=== PATIENT | female | born 1935 | race Caucasian/White ===

== ENCOUNTER 2020-02-05 19:02 | Inpatient (IN) | payer MEDICARE, MEDICAID ==
[2020-02-05 19:44] LABS: #Basophils 0.1 thou/uL (0.0-0.2); #Eosinphils 0.3 thou/uL (0.0-0.7); #Lymphocytes 2.5 thou/uL (1.20-3.40); #Monocytes 0.7 thou/uL (0.11-0.59); #Neutrophils 5.3 thou/uL (1.40-6.50); %Basophils 1.1 % (0.0-1.0); %Eosinophils 3.4 % (0.0-10.0); %Lymphocytes 28.6 % (21.0-51.0); %Monocytes 7.5 % (0.0-10.0); %Neutrophils 59.4 % (42.0-75.0); Hemoglobin 10.4 g/dL (12.0-16.0); Mean Corpuscular HGB CONC 31.1 g/dL (32.0-36.0); Mean Corpuscular Hemoglobin 26.5 pg (27.0-31.0); Mean Corpuscular Volume 85.1 fL (78.0-98.0); Mean Platelet Volume 10.4 fL (7.4-10.4); Platelet Count 260 thou/uL (130-400); RBC Distribution Width 16.4 % (11.5-14.5); Red Blood Cell (RBC) Count 3.93 mill/uL (4.20-5.40); White Blood Cell (WBC) Count 8.9 thou/uL (4.8-10.8)
[2020-02-05 20:01] LABS: ALT (SGPT) 20 U/L (8-55); AST (SGOT) 18 U/L (5-34); Alkaline Phosphatase 112 U/L (40-110); Anion Gap 16 mmol/L (10-20); BUN (Urea Nitrogen) 40 mg/dL (9.8-20.1); Bilirubin, Total 0.3 mg/dL (0.2-1.2); CK (CPK) 52 U/L (29-168); Calc. Creatinine Clearance 0 mL/min (70-130); Carbon Dioxide 22 mmol/L (23-31); Chloride 96 mmol/L (98-107); Estimated GFR-MDRD 42; Globulin 2.7 g/dL (2.4-3.5); Glucose 132 mg/dL (83-110); Potassium 4.7 mmol/L (3.5-5.1); Protein, Total 6.7 g/dL (6.0-8.3); Sodium 129 mmol/L (136-145)
[2020-02-05 20:02] LABS: Bilirubin Negative (Negative); Blood, Urine Negative (Negative); Clarity Clear (Clear); Glucose, Urine (Dipstick) Negative (Negative); Ketone, Urine Negative (Negative); Leukocyte Trace (Negative); Nitrite Negative (Negative); Protein, Urine (Dipstick) Negative (Neg-Trace); Specific Gravity, Urine 1.015 (1.005-1.030); Urobilinogen 0.2 mg/dL (Less than 2)
[2020-02-05 20:07] LABS: Bacteria/HPF 3+ HPF (None Seen); RBC/HPF None Seen HPF (0-3); Squamous Epithelial None Seen HPF (0-3)
[2020-02-05] MEDS ORDERED: Sodium Chloride 0.9% 1,000 ML ONE (20:22)
[2020-02-05] MEDS ORDERED: Sodium Chloride 0.9% 100 ML ONE (20:22)
[2020-02-05] MEDS ORDERED: cefTRIAXone\\ROCEPHIN 1 GM VIAL ONE (20:22)
--- NOTE | 2020-02-05 20:45 | CT ---
CT OF BRAIN PERFORMED WITHOUT CONTRAST ENHANCEMENT: History: Altered mental status. Comparison: 01-31-17 FINDINGS: There is generalized ventricular and sulcal prominence. There are no signs of intracerebral hemorrhag e or extraaxial fluid collections. Mastoid air cells are clear. Minimal mucosal change within the max illary sinuses. IMPRESSION: No acute intracranial abnormalities. POS: OFF
--- NOTE | 2020-02-05 21:20 | RAD ---
KUB AND UPRIGHT PA CHEST: History: Altered mental status, nausea, vomiting, history of small bowel obstruction. FINDINGS: The bowel gas pattern appears nonobstructed. No free air demonstrated. No renal calculi seen. Atheros clerotic changes of the aorta are noted. PA CHEST: Heart size appears slightly enlarged. Atherosclerotic changes of the aorta. The lungs are clear of an y infiltrates. There are arthritic changes of the spine and hips. IMPRESSION: No acute findings. POS: OFF
[2020-02-05] MEDS ORDERED: Ondansetron PF 4 MG/2 ML Vial IVP PRN (23:25)
[2020-02-05] MEDS ORDERED: Ondansetron ODT 4 MG TAB SL PRN (23:25)
[2020-02-05] MEDS ORDERED: Sodium Chloride 0.9% 1,000 ML IV SCH (23:26)
[2020-02-05 23:47] VITALS: BMI 28.0
[2020-02-06 05:29] LABS: #Basophils 0.1 thou/uL (0.0-0.2); #Eosinphils 0.3 thou/uL (0.0-0.7); #Lymphocytes 2.4 thou/uL (1.20-3.40); #Monocytes 0.6 thou/uL (0.11-0.59); #Neutrophils 5.2 thou/uL (1.40-6.50); %Basophils 1.2 % (0.0-1.0); %Eosinophils 3.3 % (0.0-10.0); %Lymphocytes 27.8 % (21.0-51.0); %Monocytes 7.4 % (0.0-10.0); %Neutrophils 60.3 % (42.0-75.0); Hemoglobin 10.9 g/dL (12.0-16.0); Mean Corpuscular HGB CONC 30.7 g/dL (32.0-36.0); Mean Corpuscular Hemoglobin 26.3 pg (27.0-31.0); Mean Corpuscular Volume 85.6 fL (78.0-98.0); Mean Platelet Volume 9.3 fL (7.4-10.4); Platelet Count 249 thou/uL (130-400); RBC Distribution Width 16.1 % (11.5-14.5); Red Blood Cell (RBC) Count 4.15 mill/uL (4.20-5.40); White Blood Cell (WBC) Count 8.5 thou/uL (4.8-10.8)
[2020-02-06 05:41] LABS: Anion Gap 16 mmol/L (10-20); BUN (Urea Nitrogen) 33 mg/dL (9.8-20.1); Calc. Creatinine Clearance 54 mL/min (70-130); Calcium 9.3 mg/dL (7.8-10.44); Carbon Dioxide 20 mmol/L (23-31); Chloride 99 mmol/L (98-107); Estimated GFR-MDRD 56; Glucose 109 mg/dL (83-110); Potassium 4.5 mmol/L (3.5-5.1); Sodium 130 mmol/L (136-145)
[2020-02-06] MEDS ORDERED: Polyethylene Glycol 3350 17 GM Packet PO PRN (08:10)
[2020-02-06] MEDS ORDERED: Mag-Al Plus 1200 MG/1200 MG/120 MG/30 ML UDCUP PO PRN (08:10)
[2020-02-06] MEDS ORDERED: Loperamide HCl 2 MG CAP PO PRN (08:10)
[2020-02-06] MEDS ORDERED: Milk Of Magnesia 30 ML UDCUP PO PRN (08:10)
[2020-02-06] MEDS ORDERED: guaiFENesin 100 MG/5 ML UDCUP PO PRN (08:10)
[2020-02-06] MEDS ORDERED: Acetaminophen 325 MG TAB PO PRN (08:21)
[2020-02-06] MEDS ORDERED: Levothyroxine Sodium 50 MCG TAB PO SCH (08:30)
[2020-02-06] MEDS: Famotidine 20 MG TAB PO SCH ×2 (09:06→20:19)
[2020-02-06] MEDS: Lisinopril 10 MG TAB PO SCH (09:07)
[2020-02-06] MEDS: hydrALAZINE 25 MG TAB PO SCH ×3 (09:07→20:19)
[2020-02-06] MEDS: Aspirin Chewable 81 MG TAB PO SCH (09:07)
[2020-02-06] MEDS: Lactinex Tablet PO SCH ×3 (09:07→20:19)
[2020-02-06] MEDS: Mometasone/Formoterol 200/5 60 PUFF INH SCH ×2 (09:08→20:22)
[2020-02-06] MEDS: OXcarbazepine 150 MG TAB PO SCH (09:09)
[2020-02-06] MEDS: OLANZapine 5 MG TAB PO SCH ×2 (09:09→20:20)
[2020-02-06] MEDS: Carvedilol 25 MG TAB PO SCH ×2 (09:10→20:22)
[2020-02-06] MEDS: Vit A,C & E/Lutein/Minerals Tablet PO SCH (09:10)
[2020-02-06 09:35] LABS: Anion Gap 16 mmol/L (10-20); BUN (Urea Nitrogen) 30 mg/dL (9.8-20.1); Calc. Creatinine Clearance 52 mL/min (70-130); Calcium 9.5 mg/dL (7.8-10.44); Carbon Dioxide 21 mmol/L (23-31); Chloride 98 mmol/L (98-107); Estimated GFR-MDRD 54; Glucose 116 mg/dL (83-110); Potassium 4.8 mmol/L (3.5-5.1); Sodium 130 mmol/L (136-145)
[2020-02-06] MEDS ORDERED: Enoxaparin Sodium 40 MG/0.4 ML SYRINGE SC SCH (10:45)
[2020-02-06] MEDS: Cepastat Lozenges 1 LOZ PO SCH ×3 (13:01→22:43)
[2020-02-06 13:57] LABS: Anion Gap 14 mmol/L (10-20); BUN (Urea Nitrogen) 29 mg/dL (9.8-20.1); Calc. Creatinine Clearance 55 mL/min (70-130); Calcium 8.8 mg/dL (7.8-10.44); Carbon Dioxide 20 mmol/L (23-31); Chloride 98 mmol/L (98-107); Estimated GFR-MDRD 57; Glucose 127 mg/dL (83-110); Potassium 4.8 mmol/L (3.5-5.1); Sodium 127 mmol/L (136-145)
[2020-02-06] MEDS: Sodium Chloride 0.9% 1,000 ML IV SCH ×2 (14:49→17:25)
[2020-02-06 18:10] LABS: Anion Gap 14 mmol/L (10-20); BUN (Urea Nitrogen) 25 mg/dL (9.8-20.1); Calc. Creatinine Clearance 56 mL/min (70-130); Calcium 9.1 mg/dL (7.8-10.44); Carbon Dioxide 19 mmol/L (23-31); Chloride 98 mmol/L (98-107); Estimated GFR-MDRD 59; Glucose 109 mg/dL (83-110); Potassium 4.4 mmol/L (3.5-5.1); Sodium 127 mmol/L (136-145)
[2020-02-06] MEDS: Nitrofurantoin Monohyd/M-Cryst 100 MG CAP PO SCH (20:19)
[2020-02-06] MEDS ORDERED: Atorvastatin Calcium 10 MG TAB PO SCH (21:00)
[2020-02-06] MEDS ORDERED: OXcarbazepine 150 MG TAB PO SCH (21:00)
[2020-02-06] MEDS ORDERED: OLANZapine 5 MG TAB PO SCH (21:00)
[2020-02-06] MEDS ORDERED: cefTRIAXone\\ROCEPHIN 1 GM in Sodium Chloride 0.9% 100 ML IVPB SCH (21:00)
[2020-02-06] MEDS ORDERED: Loratadine 10 MG TAB PO SCH (21:00)
[2020-02-07] MEDS: Cepastat Lozenges 1 LOZ PO SCH ×3 (04:26→17:20)
[2020-02-07 05:49] LABS: Anion Gap 13 mmol/L (10-20); BUN (Urea Nitrogen) 22 mg/dL (9.8-20.1); Calc. Creatinine Clearance 56 mL/min (70-130); Carbon Dioxide 21 mmol/L (23-31); Chloride 102 mmol/L (98-107); Estimated GFR-MDRD 58; Glucose 103 mg/dL (83-110); Potassium 4.2 mmol/L (3.5-5.1); Sodium 132 mmol/L (136-145)
[2020-02-07] MEDS ORDERED: Levothyroxine Sodium 50 MCG TAB PO SCH (06:00)
--- NOTE | 2020-02-07 06:06 | HP ---
HISTORY OF PRESENT ILLNESS: This is an 84-year-old female, who is a resident of [facility]. She was sent to [facility] ER for altered mental status. She was found to have a UTI and hyponatremia. In the ED, workup included CT of the brain, which was unremarkable and her abdominal series, which was remarkable as well. The patient was started on normal saline at 75 mL per hour and Rocephin was ordered; however, the patient was a difficult stick to start the IV line and this has since been completed. The patient has multiple medications in her MAR and these were reviewed. The patient in the room now is pleasant, but oriented only to self. Review of systems is limited to current status as the patient could not remember the episode which brought her to the emergency room. REVIEW OF SYSTEMS: GENERAL: Denies any fever or chills. Denies any weight loss or weight gain. HEENT: Denies any rhinorrhea or cough. CV: Denies any palpitations, chest pain. RESPIRATORY: Denies any shortness of breath, dyspnea on exertion, or paroxysmal nocturnal dyspnea. GI: Denies any abdominal pain, does report chronic constipation with a previous admission for small bowel obstruction. EXTREMITIES: Denies any new onset weakness; however, the patient does have chronic left-sided weakness from a previous CVA. PAST MEDICAL HISTORY: Hypothyroid, history of fecal impaction, hypertension, hyperlipidemia, seizures, CVA with residual left-sided weakness, and anxiety. PAST SURGICAL HISTORY: None. SOCIAL HISTORY: Denies any tobacco, alcohol, or illicit drug use. HOME MEDICATIONS: Include; 1. Levothyroxine 50 mcg one tab p.o. daily. 2. Hydralazine 50 mg one tab daily. 3. Guaifenesin 100 mg per 5 mL bottle, 10 mL p.o. q.4 hours p.r.n. cough. 4. Coreg 25 mg tablet. 5. Atorvastatin 10 mg p.o. at bedtime. 6. Aspirin 81 one tab p.o. daily. 7. Advair 1 puff b.i.d. 8. Acetaminophen 325 mg capsule two tabs p.o. q.4 hours pain. 9. Maalox 30 mL p.o. q.4 hours p.r.n. dyspepsia. 10. Lorazepam 0.5 tabs one tab p.o. q.6 p.r.n. anxiety. 11. Loperamide one tab p.o. q.6 p.r.n. diarrhea. 12. Lisinopril 10 mg p.o. b.i.d. 13. Probiotic one cap p.o. t.i.d. 14. Ipratropium/albuterol sulfate ampule nebulizer 3 mL inhaled b.i.d. 15. HCTZ 25 mg p.o. daily. 16. Hydroxyzine hydrochloride 0.5 tab p.o. q.4 hours p.r.n. itching. 17. Sertraline 50 mg one tab p.o. at bedtime. 18. Oxcarbazepine 150 mg one tab p.o. at bedtime. 19. Oxcarbazepine 150 mg 0.5 tab p.o. daily. 20. Olanzapine 5 mg one tab p.o. daily. 21. Olanzapine 10 mg one tab p.o. at bedtime. 22. MiraLAX 17 g p.o. q.8 hours p.r.n. constipation. 23. Milk of magnesia 30 mg p.o. daily p.r.n. constipation. 24. Gabapentin 100 mg capsule one cap p.o. b.i.d. 25. Cetirizine 1 tab p.o. at bedtime. PHYSICAL EXAMINATION: VITAL SIGNS: On admission, temperature 96.4, pulse 86, respiratory rate 20, O2 saturation 97% on room air, BP 174/75. This morning, her vital signs are temperature 97.5, pulse 66, respiratory rate is 22, O2 saturation 96% on room air, BP 144/67. GENERAL: Well-appearing, well-dressed, 84-year-old female, in no acute distress. However, she is confused as to why she is here. HEENT: Buccal mucosa is moist. No pharyngeal exudate or erythema. No rhinorrhea seen. NECK: No thyromegaly. RESPIRATORY: Clear to auscultation bilaterally. No wheezes, rhonchi, or rales. CV: Regular rate and rhythm. No murmurs, gallops, or rubs. GI: Nontender to palpation in all four quadrants. Bowel sounds present in all four quadrants. EXTREMITIES: Mild left-sided weakness. I's and O's; intake 360, output 700, balance -340. Sodium of 129 on admission ASSESSMENT: 1. Altered mental status secondary to urinary tract infection versus hyponatremia. 2. Hypertension. 3. Hyperlipidemia. 4. Anxiety. 5. History of seizures. PLAN: 1. For her hyponatremia, we will start her on normal saline at 75 mL/hour; however, she will need to be on p.o. fluid restriction through her diet. She is currently on a clear liquid diet. We will contact the [facility] to see if she was on a solid diet, so that we can better fluid restrict her. This will help with her hyponatremia. She is on multiple medications that could cause SIADH including sertraline, olanzapine, oxcarbazepine, as well as lisinopril and HCTZ, which can cause hyponatremia. I have stopped her HCTZ; however, she needs her lisinopril for her blood pressure. She will not be able to discontinue her sertraline, olanzapine, or oxcarbazepine as we would not want her to go into withdrawal for these. I did decrease her olanzapine to 5 mg at night; however, we will need to potentially discontinue some of these medications if her sodium does not correct with fluid restriction. I am putting in serial BMPs for her q.4 hours. 2. As for her UTI, started on Rocephin and I will follow up with a CBC tomorrow to monitor any new white count. IV fluids will help with the UTI as well. 3. For her hypertension, we will continue her lisinopril and monitor her blood pressure at this time. I switched her lisinopril to daily instead of b.i.d., but kept her at 10 mg, this may help with the hyponatremia as well. We will continue to monitor her blood pressure throughout the day and may have to restart medications if blood pressure goes back up. However, we can try other medications such as a calcium channel davon. 4. Continue atorvastatin. 5. I have discontinued her lorazepam as this can increase her confusion. We will need to monitor the anxiety. The patient was getting lorazepam only as needed; however, we will monitor for any withdrawal symptoms from the lorazepam. 6. The patient has history of seizures and we will continue with the oxcarbazepine, however, this can cause SIADH, so we may need to consider decreasing the dose or changing this medication; however, we will not do it in the acute setting. 7. SCDs for VTE prophylaxis, the patient is a fall risk at this time and we will not use any Lovenox or heparin. 8. Famotidine for GI prophylaxis. 9. The patient will be a bed rest with bathroom privileges at this time as she is a fall risk with her confusion. 10. Fall precautions, seizure precautions. 11. The patient is a DNR. She has documentation in the chart for her DNR status. 12. Continue levothyroxine. 13. Monitor her bowel habits. I have ordered loperamide p.r.n. as well as milk of magnesia p.r.n. 14. Monitor for any increase in confusion. Job ID: [id number] [facility]
[2020-02-07] MEDS: Famotidine 20 MG TAB PO SCH (08:23)
[2020-02-07] MEDS: Carvedilol 25 MG TAB PO SCH (08:23)
[2020-02-07] MEDS: Aspirin Chewable 81 MG TAB PO SCH (08:23)
[2020-02-07] MEDS: hydrALAZINE 25 MG TAB PO SCH ×2 (08:23→15:57)
[2020-02-07] MEDS: Lisinopril 10 MG TAB PO SCH (08:24)
[2020-02-07] MEDS: Lactinex Tablet PO SCH ×2 (08:24→15:57)
[2020-02-07] MEDS: Mometasone/Formoterol 200/5 60 PUFF INH SCH (08:25)
[2020-02-07] MEDS: OXcarbazepine 150 MG TAB PO SCH (08:26)
[2020-02-07] MEDS: Nitrofurantoin Monohyd/M-Cryst 100 MG CAP PO SCH (08:26)
[2020-02-07] MEDS: Vit A,C & E/Lutein/Minerals Tablet PO SCH (08:27)
[2020-02-07] MEDS: OLANZapine 5 MG TAB PO SCH (08:30)
[2020-02-07 19:34] VITALS: BP 143/65; TEMP 97.8
== END 2020-02-07 19:41 | DRG 690 ==
LOC: NAV ERS 19:02 → NAV ACUTE 21:01
PROVIDERS: ADMIT Internal Medicine; ATTEND Internal Medicine
DX: N39.0 Urinary tract infection, site not specified (principal); E87.1 Hypo-osmolality and hyponatremia; I69.354 Hemiplegia and hemiparesis following cerebral infarction affecting left non-dominant side; F41.9 Anxiety disorder, unspecified; I10 Essential (primary) hypertension; G40.909 Epilepsy, unspecified, not intractable, without status epilepticus; Z66 Do not resuscitate; E03.9 Hypothyroidism, unspecified; Z79.899 Other long term (current) drug therapy; Z79.82 Long term (current) use of aspirin; Z88.6 Allergy status to analgesic agent; Z88.8 Allergy status to other drugs, medicaments and biological substances; Z88.1 Allergy status to other antibiotic agents
CPT/HCPCS: 36415; 51701; 70450; 74022; 80048; 80053; 81003; 81015; 82550; 83605; 84484; 85025; 87040; 93005; 96365; J0696; J1650; J3490; J7050

== ENCOUNTER 2021-09-12 15:46 | Emergency (ER) | payer MEDICARE, MEDICAID ==
[~2021-09-12 15:46] MED LIST: Iopamidol 370 76% 100 ML VIAL ONE
[2021-09-12 16:27] LABS: #Basophils 0.1 thou/uL (0.0-0.2); #Eosinphils 0.2 thou/uL (0.0-0.7); #Lymphocytes 2.1 thou/uL (1.20-3.40); #Monocytes 0.7 thou/uL (0.11-0.59); #Neutrophils 6.2 thou/uL (1.40-6.50); %Basophils 0.9 % (0.0-1.0); %Lymphocytes 22.8 % (21.0-51.0); %Neutrophils 67.3 % (42.0-75.0); Hemoglobin 10.6 g/dL (12.0-16.0); Mean Corpuscular HGB CONC 30.4 g/dL (32.0-36.0); Mean Corpuscular Hemoglobin 27.3 pg (27.0-31.0); Mean Corpuscular Volume 89.6 fL (78.0-98.0); Platelet Count 278 thou/uL (130-400); Red Blood Cell (RBC) Count 3.88 mill/uL (4.20-5.40); White Blood Cell (WBC) Count 9.2 thou/uL (4.8-10.8)
[2021-09-12 16:48] LABS: ALT (SGPT) 130 U/L (8-55); AST (SGOT) 123 U/L (5-34); Albumin 3.6 g/dL (3.4-4.8); Alkaline Phosphatase 231 U/L (40-110); Anion Gap 15 mmol/L (10-20); BUN (Urea Nitrogen) 28 mg/dL (9.8-20.1); Bilirubin, Total 0.6 mg/dL (0.2-1.2); CK (CPK) 54 U/L (29-168); Calc. Creatinine Clearance 0 mL/min (70-130); Calcium 9.1 mg/dL (7.8-10.44); Carbon Dioxide 21 mmol/L (23-31); Chloride 103 mmol/L (98-107); Globulin 3.6 g/dL (2.4-3.5); Glucose 109 mg/dL (83-110); Potassium 4.2 mmol/L (3.5-5.1); Protein, Total 7.2 g/dL (5.8-8.1); Sodium 135 mmol/L (136-145)
[2021-09-12] MEDS ORDERED: AMOXicillin 250 MG CAP ONE (19:25)
== END 2021-09-12 20:15 ==
LOC: NAV ERS 15:46
DX: J44.1 Chronic obstructive pulmonary disease with (acute) exacerbation (principal); E03.9 Hypothyroidism, unspecified; E78.2 Mixed hyperlipidemia; I12.9 Hypertensive chronic kidney disease with stage 1 through stage 4 chronic kidney disease, or unspecified chronic kidney disease; N18.30 Chronic kidney disease, stage 3 unspecified; Z79.899 Other long term (current) drug therapy; Z79.82 Long term (current) use of aspirin
CPT/HCPCS: 36415; 71045; 71275; 80053; 82550; 83880; 84484; 85025; 85379; 93005; J7620

== ENCOUNTER 2022-10-04 17:01 | Emergency (ER) | payer MEDICARE, MEDICAID | END 2022-10-04 21:25 | LOC: NAV ERS 17:01 | DX: S00.93XA Contusion of unspecified part of head, initial encounter (principal); M54.50 Low back pain, unspecified; G89.29 Other chronic pain; F03.90 Unspecified dementia, unspecified severity, without behavioral disturbance, psychotic disturbance, mood disturbance, and anxiety; E78.00 Pure hypercholesterolemia, unspecified; I10 Essential (primary) hypertension; Z79.82 Long term (current) use of aspirin; Z79.899 Other long term (current) drug therapy; W19.XXXA Unspecified fall, initial encounter | CPT/HCPCS: 70450; 72125; 72128; 72131 ==

== ENCOUNTER 2022-12-27 05:47 | Emergency (ER) | payer MEDICARE, MEDICAID ==
[2022-12-27] MEDS ORDERED: Boostrix 0.5 ML (Tdap) VIAL (>/=7 yrs of age) ONE (06:06)
[2022-12-27 06:20] LABS: #Lymphocytes 1.1 thou/uL (1.20-3.40); #Monocytes 0.7 thou/uL (0.11-0.59); #Neutrophils 5.1 thou/uL (1.40-6.50); %Basophils 0.7 % (0.0-1.0); %Eosinophils 0.7 % (0.0-10.0); %Lymphocytes 15.1 % (21.0-51.0); %Monocytes 10.2 % (0.0-10.0); %Neutrophils 73.4 % (42.0-75.0); Hemoglobin 10.9 g/dL (12.0-16.0); Mean Corpuscular HGB CONC 32.2 g/dL (32.0-36.0); Mean Corpuscular Hemoglobin 27.8 pg (27.0-31.0); Mean Corpuscular Volume 86.4 fl (78.0-98.0); Mean Platelet Volume 10.2 fL (7.4-10.4); Platelet Count 186 10x3/uL (130-400); RBC Distribution Width 13.4 % (11.5-14.5); Red Blood Cell (RBC) Count 3.93 mill/uL (4.20-5.40)
[2022-12-27 06:25] LABS: Bilirubin Small (Negative); Blood, Urine Moderate (Negative); Clarity Cloudy (Clear); Glucose, Urine (Dipstick) Negative (Negative); Ketone, Urine Trace mg/dL (Negative); Leukocyte Negative (Negative); Nitrite Negative (Negative); Protein, Urine (Dipstick) 100 mg/dL (Neg-Trace); Specific Gravity, Urine 1.025 (1.005-1.030); pH, Urine 5.5 (5.0-9.0)
[2022-12-27 06:32] LABS: Bacteria/HPF 3+ HPF (None Seen); CAUTI Indications for Culture Alt mental st,lethar; RBC/HPF 0-3 HPF (0-3); Squamous Epithelial None Seen HPF (0-3); Urine Culture Reflex No No
[2022-12-27 06:36] LABS: Bicarbonate (HCO3v) 20.8 mmol/L (22.0-28.0); Calcium, Ionized 1.11 mmol/L (1.15-1.33); Chloride 102 mmol/L (98-107); Hemoglobin - Calc 11.5 g/dL (12.0-16.0); Potassium 3.6 mmol/L (3.5-5.1); Sodium 137 mmol/L (138-145); T. Carbon Dioxide 21.8 mmol/L (22.0-28.0); vO2 Saturation-calc 76.8 % (60.0-85.0)
[2022-12-27 06:38] LABS: ALT (SGPT) 33 U/L (8-55); AST (SGOT) 39 U/L (5-34); Albumin 3.3 g/dL (3.4-4.8); Alkaline Phosphatase 144 U/L (40-110); Anion Gap 18 mmol/L (10-20); BUN (Urea Nitrogen) 48 mg/dL (9.8-20.1); Bilirubin, Total 0.5 mg/dL (0.2-1.2); Calc. Creatinine Clearance 0 mL/min (70-130); Calcium 8.5 mg/dL (7.8-10.44); Carbon Dioxide 18 mmol/L (23-31); Chloride 103 mmol/L (98-107); Estimated GFR 25; Globulin 2.6 g/dL (2.4-3.5); Glucose 123 mg/dL (83-110); Potassium 3.8 mmol/L (3.5-5.1); Protein, Total 5.9 g/dL (5.8-8.1); Sodium 135 mmol/L (136-145)
[2022-12-27] MEDS ORDERED: cefTRIAXone (ROCEPHIN) 1 GM VIAL ONE (07:23)
[2022-12-27] MEDS ORDERED: Sodium Chloride 0.9% 100 ML ONE (07:23)
[2022-12-27] MEDS ORDERED: Acetaminophen 500 MG TAB ONE (07:45)
== END 2022-12-27 11:04 ==
LOC: NAV ERS 05:47
DX: S01.01XA Laceration without foreign body of scalp, initial encounter (principal); N17.9 Acute kidney failure, unspecified; N39.0 Urinary tract infection, site not specified; E03.9 Hypothyroidism, unspecified; E78.00 Pure hypercholesterolemia, unspecified; I12.9 Hypertensive chronic kidney disease with stage 1 through stage 4 chronic kidney disease, or unspecified chronic kidney disease; N18.30 Chronic kidney disease, stage 3 unspecified; W22.8XXA Striking against or struck by other objects, initial encounter; Z23 Encounter for immunization; Z79.899 Other long term (current) drug therapy
CPT/HCPCS: 12001; 36416; 51701; 70450; 71045; 72125; 80053; 81001; 82330; 82553; 82803; 83605; 84484; 85025; 87040; 87077; 87086; 87149; 87186; 90471; 90715; 93005; 96365; J0696; J3490

== ENCOUNTER 2023-09-30 14:14 | Emergency (ER) | payer MEDICARE, MEDICAID | END 2023-09-30 16:43 | LOC: NAV ERS 14:14 | DX: S62.327A Displaced fracture of shaft of fifth metacarpal bone, left hand, initial encounter for closed fracture (principal); F03.90 Unspecified dementia, unspecified severity, without behavioral disturbance, psychotic disturbance, mood disturbance, and anxiety; I12.9 Hypertensive chronic kidney disease with stage 1 through stage 4 chronic kidney disease, or unspecified chronic kidney disease; N18.30 Chronic kidney disease, stage 3 unspecified; E78.00 Pure hypercholesterolemia, unspecified; J44.9 Chronic obstructive pulmonary disease, unspecified; E03.9 Hypothyroidism, unspecified; Z86.73 Personal history of transient ischemic attack (TIA), and cerebral infarction without residual deficits; Z79.82 Long term (current) use of aspirin; Z79.899 Other long term (current) drug therapy; W18.30XA Fall on same level, unspecified, initial encounter; Y92.129 Unspecified place in nursing home as the place of occurrence of the external cause | CPT/HCPCS: 29125; 70450 ==